=== PATIENT | female | born 1975 | race Caucasian/White ===

== ENCOUNTER 2018-09-26 10:01 | Emergency (ER) | payer BC ==
[~2018-09-26] VITALS: Ht 157.5 cm; Wt 71.2 kg
[2018-09-26] MEDS ORDERED: NAPROSYN500 MG PO (11:06)
[2018-09-26 12:22] VITALS: BP 114/56
== END 2018-09-26 11:35 | disposition home or self-care (01) ==
LOC: ER 10:01
DX: S93.491A Sprain of other ligament of right ankle, initial encounter (principal); W00.0XXA Fall on same level due to ice and snow, initial encounter; Y92.89 Other specified places as the place of occurrence of the external cause; Y93.89 Activity, other specified; Y99.8 Other external cause status